=== PATIENT | female | born 1950 | race Hispanic/Latino ===

== ENCOUNTER 2017-11-14 11:19 | Day surgery (SDC) | payer MEDICARE, OTHER ==
[~2017-11-14 11:19] MED LIST: IOPIDINE ONE; MYDRIACYL ONE
[2017-11-14] MEDS ORDERED: IOPIDINE OD ONE (11:46)
[2017-11-14] MEDS ORDERED: MYDRIACYL OD ONE (11:46)
[2017-11-14] MEDS ORDERED: NEOFRIN OD ONE (11:46)
[2017-11-14 12:50] VITALS: BP 139/87
== END 2017-11-14 11:20 | disposition home or self-care (01) ==
LOC: OR 11:19
PROVIDERS: ATTEND Specialist
DX: H26.491 Other secondary cataract, right eye (principal); I10 Essential (primary) hypertension; E78.00 Pure hypercholesterolemia, unspecified; J44.9 Chronic obstructive pulmonary disease, unspecified; M19.90 Unspecified osteoarthritis, unspecified site; Z87.891 Personal history of nicotine dependence; Z98.890 Other specified postprocedural states; Z88.2 Allergy status to sulfonamides

== ENCOUNTER 2017-11-21 10:46 | Day surgery (SDC) | payer MEDICARE, OTHER ==
[2017-11-21] MEDS ORDERED: IOPIDINE ONE (11:05)
[2017-11-21] MEDS ORDERED: MYDRIACYL ONE (11:05)
[2017-11-21] MEDS ORDERED: NEOFRIN ONE (11:05)
[2017-11-21] MEDS ORDERED: IOPIDINE OS ONE ×2 (11:30→12:24)
[2017-11-21] MEDS ORDERED: NEOFRIN OS ONE (11:30)
[2017-11-21] MEDS ORDERED: MYDRIACYL OS ONE (11:30)
[2017-11-21 12:34] VITALS: BP 130/84
== END 2017-11-21 10:47 | disposition home or self-care (01) ==
LOC: OR 10:46
PROVIDERS: ATTEND Specialist
DX: H26.492 Other secondary cataract, left eye (principal); I10 Essential (primary) hypertension; E78.00 Pure hypercholesterolemia, unspecified; J44.9 Chronic obstructive pulmonary disease, unspecified; M19.90 Unspecified osteoarthritis, unspecified site; Z98.890 Other specified postprocedural states; Z90.49 Acquired absence of other specified parts of digestive tract; Z87.891 Personal history of nicotine dependence